=== PATIENT | male | born 1995 | race African-American/Black ===

== ENCOUNTER 2018-05-01 22:55 | Emergency (ER) | payer BC ==
[2018-05-01] MEDS ORDERED: Loperamide HCl 2 MG CAP ONE (23:37)
== END 2018-05-01 23:42 | disposition home or self-care (01) ==
LOC: SCSER 22:55
DX: R11.2 Nausea with vomiting, unspecified (principal); R19.7 Diarrhea, unspecified; I10 Essential (primary) hypertension; Z79.899 Other long term (current) drug therapy
CPT/HCPCS: 99283

== ENCOUNTER 2018-05-16 16:46 | Emergency (ER) | payer BC | END 2018-05-16 17:24 | disposition home or self-care (01) | LOC: ERS 16:46 | DX: K03.81 Cracked tooth (principal); K04.7 Periapical abscess without sinus; K02.9 Dental caries, unspecified; I10 Essential (primary) hypertension | CPT/HCPCS: 99282 ==

== ENCOUNTER 2018-06-26 22:39 | Emergency (ER) | payer BC | END 2018-06-26 23:40 | disposition home or self-care (01) | LOC: ERS 22:39 | DX: K03.81 Cracked tooth (principal); K02.9 Dental caries, unspecified; I10 Essential (primary) hypertension; Z79.899 Other long term (current) drug therapy | CPT/HCPCS: 99283 ==

== ENCOUNTER 2018-07-03 22:55 | Emergency (ER) | payer BC ==
[2018-07-03] MEDS ORDERED: Ibuprofen 800 MG TAB ONE (23:30)
== END 2018-07-03 23:38 | disposition home or self-care (01) ==
LOC: SCSER 22:55
DX: S39.012A Strain of muscle, fascia and tendon of lower back, initial encounter (principal); I10 Essential (primary) hypertension; V89.2XXA Person injured in unspecified motor-vehicle accident, traffic, initial encounter
CPT/HCPCS: 99283